=== PATIENT | female | born 1965 | race Caucasian/White ===

== ENCOUNTER 2020-03-28 13:48 | Outpatient (REF) | payer MEDICARE, SELFPAY ==
[2020-03-28 15:03] LABS: Blood Urea Nitrogen 18 mg/dL (9-16); Estimated Glomerular Filt Rate > 60
== END 2020-03-28 13:49 | disposition home or self-care (01) ==
LOC: HO.LAB 13:48
PROVIDERS: Visit Provider Nurse Practitioner Family
DX: G08 Intracranial and intraspinal phlebitis and thrombophlebitis (principal); G44.82 Headache associated with sexual activity
CPT/HCPCS: 82565; 84520

== ENCOUNTER 2020-04-04 16:33 | Outpatient (REF) | payer MEDICARE, SELFPAY ==
--- NOTE | 2020-04-04 16:46 | MR_ITS ---
EXAMINATION: MR VENOGRAM WITHOUT CONTRAST CLINICAL INFORMATION: Coital headaches. COMPARISON: No relevant prior imaging. TECHNIQUE: A coronal 2-dimensional [id number] acquisition of the dural venous sinuses was performed. Additional coronal and sagittal phase contrast images were obtained.. MIP reconstructions were generated in multiple orientations at the acquisition workstation. Multiple three-dimensional surface rendered images and maximum intensity projection images were generated on a dedicated 3-D lab workstation. Arterial stenoses are measured in accordance with NASCET criteria or similar method if applicable. FINDINGS: Internal cerebral veins, vein of Wilfrido, and straight sinus are patent. The superior sagittal sinus and torcula are patent. Transverse sinuses, sigmoid sinuses, and the visualized upper internal jugular veins are patent. No evidence of dural venous sinus thrombosis. IMPRESSION: MR venogram of the head.
== END 2020-04-04 16:34 | disposition home or self-care (01) ==
LOC: HO.MRI 16:33
PROVIDERS: Visit Provider Nurse Practitioner Family
DX: G44.82 Headache associated with sexual activity (principal); G08 Intracranial and intraspinal phlebitis and thrombophlebitis
CPT/HCPCS: 70546

== ENCOUNTER 2021-02-27 09:32 | Outpatient (REF) | payer MEDICARE, SELFPAY ==
[2021-02-27 11:36] LABS: Appearance Urine CLEAR; Color Urine YELLOW; Glucose Urine UA NEG (NEG); Leukocyte Esterase Urine NEG (NEG); Nitrite Urine NEG (NEG); Urine Blood NEG (NEG); Urine Ketones NEG (NEG); Urine Protein NEG (NEG-TRACE)
== END 2021-02-27 09:33 | disposition home or self-care (01) ==
LOC: HO.LAB 09:32
PROVIDERS: PCP Nurse Practitioner Family; Visit Provider Nurse Practitioner Family
DX: R39.9 Unspecified symptoms and signs involving the genitourinary system (principal)
CPT/HCPCS: 81003

== ENCOUNTER 2021-08-12 12:43 | Outpatient (REF) | payer MEDICARE, SELFPAY ==
--- NOTE | ~2021-08-12 | US_ITS ---
EXAMINATION: US SOFT TISSUE HEAD/NECK CLINICAL INFORMATION: History of thyroid cancer. Pain at location of previous cancer site. COMPARISON: None TECHNIQUE: Ultrasound of the neck soft tissues is performed with high- frequency das-scale imaging and color Doppler. FINDINGS: THYROID BED: Prior thyroidectomy. No residual thyroid tissue demonstrated in the thyroid bed. No cystic or solid nodules demonstrated in the thyroid bed. RIGHT NECK SOFT TISSUES: There are 2 lymph nodes. The largest nodes are as follows: Level 2: 1.7 x 0.7 x 1 cm. Normal irina architecture. Level 2: 0.8 x 0.6 x 1.2 cm. Normal irina architecture. LEFT NECK SOFT TISSUES: There are 2 lymph nodes. The largest nodes are as follows: Level 3: 2 x 0.4 x 0.9 cm. Slitlike hilum and cortical flow Level 2: 1.3 x 0.9 x 1.9 cm. Normal irina architecture. US/US soft tiss head and/or neck IMPRESSION: Bilateral cervical lymph nodes. There is a left level 3 lymph node with slightly abnormal irina architecture with slitlike hilum and cortical flow.
== END 2021-08-12 12:44 | disposition home or self-care (01) ==
LOC: HO.HMGCX 12:43
PROVIDERS: PCP Nurse Practitioner Family; Visit Provider Nurse Practitioner Family
DX: R07.0 Pain in throat (principal)
CPT/HCPCS: 76536